=== PATIENT | female | born 1980 | race Caucasian/White ===

== ENCOUNTER 2017-02-19 16:01 | Emergency (ER) | payer SELFPAY ==
--- NOTE | 2017-02-19 16:57 | ED Physician Documentation ---
Lower Extremity Injury - HISTORIAN Historian: patient - HPI Stated Complaint: horse fell onto her foot Chief Complaint: Lower Extremity Injury Onset: other (last night) Where: home Severity: severe Context: fall (patient's mule fell while she was riding, landing on her foot), direct blow (mule fell on right foot) Modifying Factors:: pain on movement - ROS CONST: no problems CVS/RESP: none GI/: denies: nausea, vomiting MS/SKIN/LYMPH: none NEURO: denies: headache, head injury, anxiety, depression - PAST HX Past History: other (back surgeries) Allergies/Adverse Reactions: Allergies Allergy/AdvReac Type Severity Reaction Status Date / Time Penicillins Allergy Verified 02/19/17 16:20 Home Medications: Ambulatory Orders Medication Instructions Recorded Gabapentin [Neurontin] 600 mg PO QID 02/19/17 - SOCIAL HX Smoking History: denies: non-smoker Drug Use: marijuana (for back pain) - FAMILY HX Family History: denies: none - VITAL SIGNS Vital Signs: Vital Signs Temp Pulse Resp BP Pulse Ox 99.0 F 85 14 122/80 98 02/19/17 16:08 02/19/17 16:08 02/19/17 16:08 02/19/17 16:08 02/19/17 16:08 - REVIEWED ASSESSMENTS Nursing Assessment Reviewed: Yes Vitals Reviewed: Yes ED Results Lab/Radiology - Radiology Radiology Impressions: Examination: Plain film ankle History: Ankle discomfort. Injury Findings: 3 views of the ankle demonstrates normal cortical margins. No acute fracture or dislocation. Talar dome is intact. Old well corticated unfused ossicle involving the distal fibula. No soft tissue swelling. No joint effusion. Impression: No acute osseous process. Electronically signed on Feb 19, 2017 4:46:31 PM CDT by: Angel Rivera Examination: Plain film foot History: Injury Findings: 3 views of the foot demonstrates normal cortical margins. No fracture or dislocation. Old well corticated unfused ossicle involving the distal fibula. No soft tissue swelling. No joint effusion. Impression: No acute osseous process. Electronically signed on Feb 19, 2017 4:47:37 PM CDT by: Angel Rivera - Orders Orders: ED Orders Category Date Time Status Jorje Wrap Affected Extremity 1T Care 02/19/17 16:52 Active Post Op Shoe 1T Care 02/19/17 16:54 Active ANKLE 3 VIEWS OR MORE [RAD] Stat Exams 02/19/17 Ordered FOOT 3 VIEWS OR MORE [RAD] Stat Exams 02/19/17 Ordered Ketorolac Tromethamine [Toradol] Med 02/19/17 16:52 Discontinued 60 mg IM NOW ONE Lower Extremities Injury Phy - Physical Exam General Appearance: mild distress Hips: bilateral hip: non-tender, normal inspection, normal range of motion, no evidence of injury Legs: bilateral: non-tender, normal inspection, normal range of motion, no evidence of injury Knees: bilateral: non-tender, normal inspection, normal range of motion, no evidence of injury Ankle: right: pain, soft tissue tenderness, left: non-tender, normal inspection , bilateral: normal range of motion, no evidence of injury Foot: right foot: bone tenderness, ecchymosis, limited range of motion, pain, soft tissue tenderness, swelling, left foot: non-tender, normal inspection, normal range of motion, no evidence of injury Gait: limited by pain Neuro/Vascular/Tendon: no vascular compromise, motor nml, sensation nml, ROM nml Discharge Clincal Impression: Foot sprain Qualifiers: Encounter type: initial encounter Laterality: right Qualified Code(s): S93.601A - Unspecified sprain of right foot, initial encounter Contusion of foot including toes Qualifiers: Encounter type: initial encounter Laterality: right Qualified Code(s): S90.121A - Contusion of right lesser toe(s) without damage to nail, initial encounter; S90.31XA - Contusion of right foot, initial encounter Additional Instructions: Rest ice elevation jorje - until swelling is gone Ibuprofen 4 tabs three times a day (every 8 hours) x 5 days; then as needed If no improvement in 2-3 days, see your doctor for re-evaluation Home Medications: Ambulatory Orders Gabapentin [Neurontin] 600 mg PO QID 02/19/17 Condition: Stable Disposition: 01 HOME, SELF-CARE Decision to Admit: NO Decision Time: 16:59
[2017-02-19] MEDS: KETOROLAC TROMETHAMINE 60 MG/2 ML VIAL IM ONE (17:00)
[2017-02-19 17:14] VITALS: BP 122/86
--- NOTE | 2017-02-19 17:23 | Diagnostic Imaging Report ---
IMELDA TUCKER (KENNEL WORKER) - ER~ [facility] [address] [facility].[address] [address] ~ ~ ~ ~ Report Submission Date: Feb 19, 2017 4:46:31 PM CDT Patient ~ Study Name: LASHELL BACK ~ Date: Feb 19, 2017 4:27:03 PM CDT ~ Modality Type: CR Gender: F ~ Description: LOWER EXTREMITY : 82 ~ Institution: [facility] Physician: IMELDA TUCKER) - ER ~ ~ ~ ~ Examination: Plain film ankle History: Ankle discomfort. Injury Findings: 3 views of the ankle demonstrates normal cortical margins. No acute fracture or dislocation. Talar dome is intact. Old well corticated unfused ossicle involving the distal fibula. No soft tissue swelling. No joint effusion. Impression: No acute osseous process. ~ Electronically signed on Feb 19, 2017 4:46:31 PM CDT by: Angel GONZALEZ
--- NOTE | 2017-02-19 17:24 | Diagnostic Imaging Report ---
IMELDA TUCKER (WALI) - ER~ [facility] [address] [facility] [address] [address] ~ ~ ~ ~ Report Submission Date: Feb 19, 2017 4:47:37 PM CDT Patient ~ Study Name: LASHELL BACK ~ Date: Feb 19, 2017 4:30:23 PM CDT ~ Modality Type: CR Gender: F ~ Description: LOWER EXTREMITY : 82 ~ Institution: [facility] Physician: IMELDA TUCKER) - ER ~ ~ ~ ~ Examination: Plain film foot ~ History:~ Injury Findings: 3 views of the foot demonstrates normal cortical margins. No fracture or dislocation. ~Old well corticated unfused ossicle involving the distal fibula. No soft tissue swelling. No joint effusion. Impression: No acute osseous process. ~ Electronically signed on Feb 19, 2017 4:47:37 PM CDT by: Angel GONZALEZ
== END 2017-02-19 17:10 | disposition home or self-care (01) ==
LOC: ED 16:01
DX: S93.601A Unspecified sprain of right foot, initial encounter (principal); S90.121A Contusion of right lesser toe(s) without damage to nail, initial encounter; X58.XXXA Exposure to other specified factors, initial encounter; Y93.9 Activity, unspecified; Y99.9 Unspecified external cause status
CPT/HCPCS: 73610; 73630; J1885; 96372; 99283